=== PATIENT | female | born 1985 | race Caucasian/White ===

== ENCOUNTER 2022-03-10 02:32 | Emergency (ER) | payer SELFPAY ==
[~2022-03-10] VITALS: Ht 154.9 cm; Wt 112.0 kg
[2022-03-10] MEDS ORDERED: ASPIRIN 81MG TABLET PO ONE (04:00)
[2022-03-10 04:29] LABS: HEMATOCRIT. 27.3 % (36.0-48.0); HEMOGLOBIN. 8.3 g/dL (12.0-16.0); MEAN CORPUSCULAR VOLUME 59.4 fL (81.0-99.0); MEAN PLATELET VOLUME 8.1 fl (7.4-10.4); PLATELET 252 x1000/uL (130-400); RED CELL DISTRIBUTION WIDTH 20.4 % (11.6-14.6)
[2022-03-10 04:38] LABS: CHLORIDE 104 mEq/L (98-107)
[2022-03-10] MEDS ORDERED: CEFTRIAXONE 1 G PREMIX 50 ML IV SCH (04:45)
[2022-03-10] MEDS ORDERED: AZITHROMYCIN 500 MG in DEXT 5% WATER 250 ML IV SCH (05:00)
[2022-03-10 05:49] LABS: NUCLEATED RED BLOOD CELLS 1 /100 WBC
[2022-03-10 05:50] LABS: PLATELET ESTIMATE NORMAL
[2022-03-10] MEDS ORDERED: IOHEXOL-350 100 ML BOTTLE ONE (06:21)
[2022-03-10] MEDS ORDERED: AZIT250T12 MT (07:47)
[2022-03-10] MEDS ORDERED: TOPUD PO (07:47)
[2022-03-10 08:02] VITALS: BP 135/68
== END 2022-03-10 08:01 | disposition home or self-care (01) ==
LOC: ER 03:32
DX: J18.9 Pneumonia, unspecified organism (principal); R79.1 Abnormal coagulation profile; E03.9 Hypothyroidism, unspecified; Z20.822 Contact with and (suspected) exposure to COVID-19
CPT/HCPCS: 36415; 71045; 71275; 80053; 81025; 83605; 83880; 84145; 84443; 84484; 85025; 85379; 87040; 87426; 93005; 96365; 96367; 99291; J0456; J0696; J7060; Q9967; Z7610